=== PATIENT | female | born 1980 | race African-American/Black ===

== ENCOUNTER 2021-04-13 11:43 | Emergency (ER) | payer OTHER, SELFPAY ==
[2021-04-13 11:48] VITALS: BP 126/81; PULSE 75; RESP 18; TEMP 36.9; O2SAT 99; BMI 38.1
--- NOTE | 2021-04-13 13:02 | ED.MEDCLEAR ---
HPI - Medical Clearance General Chief complaint: Body Fluid Exposure Stated complaint: needle stick - work related Time Seen by Provider: 04/13/21 13:02 Source: patient Mode of arrival: ambulatory Limitations: no limitations History of Present Illness HPI Narrative: 41-year-old female is here today sent by her employer. Patient was drawing labs on the patient and got stuck with the butterfly needle to her left ring finger. Patient reports that the patient was being drawn for HIV. She does not know patient's status. Patient works at [employer]. Here for exposure with body fluid care. Related Information Allergies Allergy/AdvReac Type Severity Reaction Status Date / Time sulfamethoxazole Allergy Intermediate Rash Verified 04/13/21 13:15 [From Bactrim] trimethoprim [From Bactrim] Allergy Intermediate Rash Verified 04/13/21 13:15 Review of Systems Review of Systems: Constitutional : No Weight loss, No Fever, No Chills, No Night Sweats, No Fatigue, No Malaise ENT/Mouth : No Hearing loss, No Ear Pain, No Nasal Congestion, No Sinus Pain, No Hoarseness, No sore throat, No Rhinorrhea, No Swallowing Difficulty Eyes: No Eye Pain, No Swelling, No Redness, No Foreign Body, No Discharge, No Vision Changes Cardiovascular : No Chest Pain, No SOB, No Dyspnea on Exertion, No Orthopnea, No Edema, No Palpitations Respiratory : No Cough, No Sputum, No Wheezing, No Smoke Exposure, No Dyspnea Gastrointestinal : No Nausea, No Vomiting, No Diarrhea, No Constipation, No abdominal Pain, No Hematochezia, No Melena Genitourinary : no irregular bleeding, No Dysuria, No Urinary Frequency, No Hematuria, No Urinary Incontinence, No Urgency, No Flank Pain, No Urinary Flow Changes, No Hesitancy Musculoskeletal : No joint pain, No Myalgias, No Joint Swelling Skin : No Skin Lesions, No rash Neuro : No Weakness, No Numbness, No Paresthesias, No Loss of Consciousness, No Dizziness, No Headache Yes all other systems are reviewed and are negative [facility] Social History Social History Alcohol intake: never Patient Tobacco Use Status: Never used Tobacco Use of substances other than those prescribed or required for medical reasons: No Advance Directives: No Physical Exam Vital Signs: Vital Signs: Last Vital Signs Temp 98.4 F 04/13/21 11:48 Pulse 75 04/13/21 11:48 Resp 18 04/13/21 11:48 BP 126/81 04/13/21 11:48 Pulse Ox 99 04/13/21 11:48 Body Mass Index 38.1 Const: General: healthy appearing, no acute distress and well developed Nutritional Appearance: well nourished Orientation/consciousness: patient oriented x3 HENMT: Head: Yes normal to inspection, Yes normocephalic and Yes atraumatic Neck: Neck: Yes normal visual inspection, Yes full ROM and Yes trachea midline Thyroid: Thyroid normal Resp: Auscultation: clear to auscultation bilaterally Cardio: Rate: regular rate Rhythm: regular rhythm GI: Inspection: Yes normal to inspection and No distended Palpation (GI): No hepatosplenomegaly present Auscultation: normal bowel sounds Skin: General skin exam: elasticity normal, turgor normal and dry skin Neuro: General: patient oriented x3 Psych: Appearance: grossly normal and well kempt Mental Status: mental status grossly normal Speech and movement: Normal speech and movement present Affect: normal affect Course Course Course Narrative: 40-year-old female was sent by her employer for post exposure care. Patient reports that she was drying patient and was stuck with a butterfly needle to her left 4th finger. Patient reports that she bled and clean her hand immediately. However she does report the patient was being drawn for HIV. Possible high-risk patient will order blood work and give patient post exposure it. She will follow-up with her PCP as well as with work connection. MDM - Medical Clearance Lab Data Result diagrams: 04/13/21 14:13 04/13/21 14:13 Labs: Lab Results 04/13/21 04/13/21 04/13/21 Range/Units 14:13 14:13 14:13 WBC 7.4 (4.8-10.8) X10*3/uL RBC 4.35 (4.20-5.50) X10*6/uL Hgb 12.1 (12.0-16.0) g/dl Hct 38.2 (37-47) % MCV 87.8 (80-98) fL MCH 27.8 (27.0-33.0) pg MCHC 31.7 (31.0-35.0) g/dl RDW 13.3 (11.0-16.0) % Plt Count 299 (160-400) X10*3/uL MPV 9.5 (9.4-12.3) fL Immature Gran % (Auto) 0.3 (0.0-0.4) % Neut % (Auto) 50.3 (45-73) % Lymph % (Auto) 40.6 H (20-40) % [place] % (Auto) 7.3 (2-11) % Eos % (Auto) 1.2 (0-4) % Baso % (Auto) 0.3 (0-2) % Lymph # (Auto) 3.0 (1.2-4.9) X10*3/uL [place] # (Auto) 0.5 (0.1-1.2) X10*3/uL Eos # (Auto) 0.1 (0.0-0.4) X10*3/uL Baso # (Auto) 0.0 (0.0-0.2) X10*3/uL Abs Immat Gran (auto) 0.02 (0.00-0.03) X10*3/uL Absolute Neuts (auto) 3.7 (2.0-8.3) X10*3/uL Absolute Nucleated RBC 0.000 (0.0-0.012) X10*3/uL Nucleated RBC % (auto) 0.0 (0.0-0.2) /100WBC Sodium 140 (135-145) mmol/L Potassium 4.0 (3.3-5.1) mmol/L Chloride 105 (96-108) mmol/L Carbon Dioxide 27 (22-29) mmol/L Anion Gap 12 (12-20) BUN 13 (9-16) mg/dL Creatinine 0.81 (0.5-1.4) mg/dL Estim Creat Clear Calc 119.8 Estimated GFR > 60 Random Glucose 85 (60-115) mg/dL Calcium 9.2 (8.4-10.2) mg/dL Total Bilirubin 0.2 (0.0-1.0) mg/dL Direct Bilirubin < 0.2 (0.0-0.5) mg/dL AST 16 (5-31) U/L ALT 16 (0-31) U/L Alkaline Phosphatase 50 (39-117) U/L Total Protein 7.2 (6.5-8.0) g/dL Albumin 4.4 (3.5-5.0) g/dL Amylase 66 (28-100) U/L Lipase 17 (8-78) U/L Urine Color YELLOW Urine Appearance CLEAR Urine pH 6.0 (5.0-8.0) Ur Specific [place] 1.020 (1.005-1.025) Urine Protein NEG (NEG-TRACE) MG/DL Urine Glucose (UA) NEG (NEG) MG/DL Urine Ketones NEG (NEG) MG/DL Urine Blood 1+ H (NEG) Urine Nitrite NEG (NEG) Ur Leukocyte Esterase 1+ H (NEG) Urine RBC 0-2 (0) /HPF Urine WBC 1-4 (0-4) /HPF Ur Squamous Epith Cells TRACE /LPF Uric Acid Crystals TRACE /LPF Urine Bacteria NONE /LPF Urine Test (NEGATIVE) 04/13/21 Range/Units 14:13 WBC (4.8-10.8) X10*3/uL RBC (4.20-5.50) X10*6/uL Hgb (12.0-16.0) g/dl Hct (37-47) % MCV (80-98) fL MCH (27.0-33.0) pg MCHC (31.0-35.0) g/dl RDW (11.0-16.0) % Plt Count (160-400) X10*3/uL MPV (9.4-12.3) fL Immature Gran % (Auto) (0.0-0.4) % Neut % (Auto) (45-73) % Lymph % (Auto) (20-40) % [place] % (Auto) (2-11) % Eos % (Auto) (0-4) % Baso % (Auto) (0-2) % Lymph # (Auto) (1.2-4.9) X10*3/uL [place] # (Auto) (0.1-1.2) X10*3/uL Eos # (Auto) (0.0-0.4) X10*3/uL Baso # (Auto) (0.0-0.2) X10*3/uL Abs Immat Gran (auto) (0.00-0.03) X10*3/uL Absolute Neuts (auto) (2.0-8.3) X10*3/uL Absolute Nucleated RBC (0.0-0.012) X10*3/uL Nucleated RBC % (auto) (0.0-0.2) /100WBC Sodium (135-145) mmol/L Potassium (3.3-5.1) mmol/L Chloride (96-108) mmol/L Carbon Dioxide (22-29) mmol/L Anion Gap (12-20) BUN (9-16) mg/dL Creatinine (0.5-1.4) mg/dL Estim Creat Clear Calc Estimated GFR Random Glucose (60-115) mg/dL Calcium (8.4-10.2) mg/dL Total Bilirubin (0.0-1.0) mg/dL Direct Bilirubin (0.0-0.5) mg/dL AST (5-31) U/L ALT (0-31) U/L Alkaline Phosphatase (39-117) U/L Total Protein (6.5-8.0) g/dL Albumin (3.5-5.0) g/dL Amylase (28-100) U/L Lipase (8-78) U/L Urine Color Urine Appearance Urine pH (5.0-8.0) Ur Specific [place] (1.005-1.025) Urine Protein (NEG-TRACE) MG/DL Urine Glucose (UA) (NEG) MG/DL Urine Ketones (NEG) MG/DL Urine Blood (NEG) Urine Nitrite (NEG) Ur Leukocyte Esterase (NEG) Urine RBC (0) /HPF Urine WBC (0-4) /HPF Ur Squamous Epith Cells /LPF Uric Acid Crystals /LPF Urine Bacteria /LPF Urine Test NEGATIVE (NEGATIVE) Discharge Plan Discharge Clinical Impression: Employee exposure to body fluids Patient Disposition: Home, Self-Care Instructions: Postexposure Prophylaxis (ED) Additional Instructions: You were seen here today after needlestick. There is a possibility that you got exposed to other person's body fluid. Please follow up with work connection and make sure you take post exposure medication as ordered. Work connections number is please call him tomorrow to make follow-up appointment. You will need more medications if the patient is positive for HIV, hepatitis C Stand Alone Forms: Work/School Release Interventions: ED Discharge Assessment Last Done: 10/14/21 16:22 Discharge Date/Time: 04/13/21 16:24
[2021-04-13] MEDS: Post Exposure Medication Kit 1 KIT PO (14:05)
--- NOTE | 2021-04-13 14:12 | PC.NURSE ---
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
[2021-04-13 14:18] LABS: MANUAL DIFF FLAG NO
[2021-04-13 14:21] LABS: Basophils Percent Auto 0.3 % (0-2); Eosinophils Absolute Auto 0.1 X10*3/uL (0.0-0.4); Eosinophils Percent Auto 1.2 % (0-4); Hematocrit 38.2 % (37-47); Hemoglobin 12.1 g/dl (12.0-16.0); Imm Gran Abs Auto 0.02 X10*3/uL (0.00-0.03); Imm Gran Pct Auto 0.3 % (0.0-0.4); Lymphocytes Percent Auto 40.6 % (20-40); Mean Corpuscular HGB Conc 31.7 g/dl (31.0-35.0); Mean Corpuscular Hemoglobin 27.8 pg (27.0-33.0); Mean Corpuscular Volume 87.8 fL (80-98); Mean Platelet Volume 9.5 fL (9.4-12.3); Monocytes Absolute Auto 0.5 X10*3/uL (0.1-1.2); Monocytes Percent Auto 7.3 % (2-11); Neutrophils Absolute Auto 3.7 X10*3/uL (2.0-8.3); Neutrophils Percent Auto 50.3 % (45-73); Platelet Count 299 X10*3/uL (160-400); Red Blood Count 4.35 X10*6/uL (4.20-5.50); Red Cell Distribution Width 13.3 % (11.0-16.0); White Blood Count 7.4 X10*3/uL (4.8-10.8)
[2021-04-13 14:22] LABS: Appearance Urine CLEAR; Color Urine YELLOW; Glucose Urine UA NEG (NEG); Leukocyte Esterase Urine 1+ (NEG); Nitrite Urine NEG (NEG); UACC Culture Trigger YES; Urine Blood 1+ (NEG); Urine Ketones NEG (NEG); Urine Protein NEG (NEG-TRACE)
[2021-04-13 14:23] LABS: UPreg QC Valid YES; Urine Pregnancy NEGATIVE (NEGATIVE)
[2021-04-13 14:40] LABS: Alanine Aminotransferase 16 U/L (0-31); Albumin Level 4.4 g/dL (3.5-5.0); Alkaline Phosphatase 50 U/L (39-117); Amylase 66 U/L (28-100); Aspartate Amino Transferase 16 U/L (5-31); Bilirubin Direct < 0.2 mg/dL (0.0-0.5); Bilirubin Total 0.2 mg/dL (0.0-1.0); Blood Urea Nitrogen 13 mg/dL (9-16); Calcium 9.2 mg/dL (8.4-10.2); Creatinine Clr Calc Pharmacy 119.8; Estimated Glomerular Filt Rate > 60; Glucose Random 85 mg/dL (60-115); Lipase 17 U/L (8-78); Total Protein 7.2 g/dL (6.5-8.0)
[2021-04-13 14:50] LABS: Anion Gap 12 (12-20); Carbon Dioxide 27 mmol/L (22-29); Chloride 105 mmol/L (96-108); Sodium 140 mmol/L (135-145)
[2021-04-13 14:59] LABS: RBC Urine 0-2 /HPF (0); Squamous Epithelial Cell Urine TRACE /LPF; Uric Acid Crystals Urine TRACE /LPF
[2021-04-14 07:47] LABS: HBS Num1 42.44 mIU/mL (0-7.99); HBsAGNum1 0.49 S/CO (0.00-0.99); HIV AB/AG Nonreactive (Nonreactive); HIV Num 1 0.06 S/CO (0.00-0.99); Hepatitis B Surface Antigen Negative (Negative); ~Hepatitis B Surface Antibody REACTIVE (Nonreactive)
[2021-04-14 08:12] LABS: HBc Num1 0.08 S/CO (0.00-0.79); Hepatitis B Core Antibody Nonreactive (Nonreactive); ~HepC Num1 0.21 S/CO (0.00-0.79); ~Hepatitis C Antibody Nonreactive (Nonreactive)
== END 2021-04-13 16:24 | disposition home or self-care (01) ==
PROVIDERS: Nurse Practitioner Family; Emergency Provider Emergency Medicine
DX: Z77.21 Contact with and (suspected) exposure to potentially hazardous body fluids (principal)
CPT/HCPCS: 36415; 80048; 80076; 81001; 81025; 82150; 83690; 85025; 86704; 86706; 86803; 87086; 87147; 87340; 87389; 99283; 99284

== ENCOUNTER 2024-03-26 11:41 | Emergency (ER) | payer OTHER, SELFPAY ==
[2024-03-26] VITALS (7 sets, daily range): BP systolic 110–142; BP diastolic 71–98; PULSE 62–81; RESP 16–20; TEMP 36.1–36.9; O2SAT 97–99; BMI 39.5
--- NOTE | ~2024-03-26 | XR_ITS ---
EXAMINATION: XR CHEST CLINICAL INFORMATION: Chest pain. COMPARISON: None available. TECHNIQUE: Frontal view of the chest was obtained. FINDINGS: The heart is normal in size. The lungs are clear. No pneumothorax or pleural effusion. No acute osseous abnormality. XR/XR chest 1V IMPRESSION: No acute cardiopulmonary disease. Electronically signed by: Alfonso Duke DO 03/26/2024 03:02 PM EDT
--- NOTE | 2024-03-26 11:50 | ECG_ITS ---
Test Reason : CHEST PAIN Blood Pressure : / mmHG Vent. Rate : 071 BPM Atrial Rate : 071 BPM P-R Int : 158 ms QRS Dur : 084 ms QT Int : 392 ms P-R-T Axes : 050 006 007 degrees QTc Int : 425 ms Normal sinus rhythm Nonspecific T wave abnormality Abnormal ECG No previous ECGs available Referred By: Hermilo Whaley Electronically Signed By:MARYJO POWERS
--- NOTE | 2024-03-26 11:53 | ED_ITS ---
HPI - General Adult General Chief complaint: Chest Pain Stated complaint: Chest pain Time Seen by Provider: 03/26/24 12:03 Source: patient and RN notes reviewed Mode of arrival: ambulatory Limitations: no limitations History of Present Illness ED Provider: Thu Webb PA-C HPI narrative: This is a [id number]-female, with a hx of anemia and PCOS, who presents to the ER with complaints of chest pain which started this AM. 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 She states that the pain is constant but developed a stabbing like pain intermittently. She reports no recent illness. No hx of similar symptoms in the past. Denies any fevers, chills, palpitations, abdominal pain, shortness of breath, nausea, vomiting or diarrhea. She reports that she has been under stress and has had inconsistent sleep. She is not on OCPs, no recent travel, surgeries, hospitalizations. No known cardiac hx. No calf tenderness. No other complaints or concerns at this time. MD complaint: Chest pain Onset (ago): day(s) Radiation: non-radiation Severity: moderate Quality: stabbing and aching Pain Consistency: intermittent Relieving factors: none Exacerbating factors: none Associated symptoms: chest pain Treatments prior to arrival: none Related Data Allergies Allergy/AdvReac Type Severity Reaction Status Date / Time sulfamethoxazole Allergy Intermediate Rash Verified 03/26/24 11:49 [From Bactrim] trimethoprim [From Bactrim] Allergy Intermediate Rash Verified 03/26/24 11:49 Review of Systems 2 Review of Systems: Yes all other systems are reviewed and are negative Constitutional: Constitutional: Reports as per [facility] Social History Social History Alcohol intake: never Patient Tobacco Use Status: Never used Tobacco Advance Directives: No Physical Exam ED Vital Signs: Vital Signs - 24 hr 03/26/24 11:46 03/26/24 12:00 03/26/24 12:54 Temperature 97.0 F 98.2 F Pulse Rate 74 62 62 Respiratory Rate 18 16 Blood Pressure 137/87 137/92 H 137/92 H Pulse Oximetry 98 98 Oxygen Delivery Method Room Air Room Air 03/26/24 12:54 03/26/24 12:55 03/26/24 15:14 Temperature 98.5 F Pulse Rate 72 81 68 Respiratory Rate 16 Blood Pressure 134/88 142/98 H 110/71 Pulse Oximetry 97 Oxygen Delivery Method Room Air 03/26/24 16:42 03/26/24 17:35 Temperature 98.1 F 98.1 F Pulse Rate 63 63 Respiratory Rate 20 20 Blood Pressure 121/77 121/77 Pulse Oximetry 99 99 Oxygen Delivery Method Room Air Room Air BMI result Body Mass Index 39.5 Const General: cooperative, comfortable and no acute distress Orientation/consciousness: patient oriented x3 Limitations: no limitations HENMT Head: Yes normal to inspection, Yes normocephalic and Yes atraumatic Ears: hearing grossly normal bilaterally General nose exam: Normal external nose present Face and sinus: Yes normal facial exam Mouth: Normal oral and palatal mucosa present, oropharynx normal and moist mucous membranes Throat: Yes posterior oropharynx normal Eyes General: appearance normal, both eyes and all related structures Eyelids: Yes eyelids normal Conjunctivae: conjunctivae normal Sclerae: sclerae normal Pupils: Equal, round and reactive pupils present EOM: EOMs intact bilaterally Neck Neck: Yes normal visual inspection, Yes full ROM and Yes no lymphadenopathy Lymphatic: no lymphadenopathy noted Chest Chest palpation & inspection: normal inspection of the chest Resp Effort & Inspection: normal respiratory effort and able to speak in complete sentences Auscultation: clear to auscultation bilaterally, no crackles, no rales, no rhonchi and no wheezes Cardio Other: mild left sided chest wall tenderness to palpation Rate: regular rate Rhythm: regular rhythm Heart sounds: S1 normal heart sound present and S2 normal heart sound present GI Inspection: Yes normal to inspection Skin General skin exam: no rashes or lesions noted Trauma: no lacerations or abrasions Wounds: no wounds Neuro General: patient oriented x3 and moves all extremities Cranial nerves: Yes Equal, round and reactive pupils present Extrem Other: No lower extremity edema, no calf tenderness General: Yes normal to inspection Right upper extremity: normal to inspection Left upper extremity: normal to inspection Right lower extremity: normal to inspection Left lower extremity: normal to inspection Course Course Course Narrative: RME: DOne by Marques Pitts. 43-year-old female presents to ED for midsternal chest pain radiating to the left. Patient states chest pain only when she stands up and feel dizzy. Patient states history of anemia blood transfusion in the past. Patient denies any leg swelling, calf pain, coughing up blood, fever or chills. Negative for any lower extremity swelling, pitting edema, or calf tenderness. Lungs are clear. EKG labs orthostatics ordered. Reevaluation(s) Reevaluation #1: Upon workup today, labs reveal no leukocytosis, stable H&H and no electrolyte derangements. EKG nonischemic. ddimer negative. Troponin x2 are negative. Discussed workup with my attending and given overall negative workup, low heart score, patient can be safely d/c home with strict return precautions. Pt understands and agrees with plan. Stable for d/c. Medications Administered Discontinued Medications Generic Name Dose Route Start Last Admin Trade Name Freq PRN Reason Stop Dose Admin Al Hydroxide/Mg Hydroxide 30 ml 03/26/24 12:24 03/26/24 12:37 Magnesium Hydrox/Alum Hydrox 30 Ml Oral.Susp PO 03/26/24 12:25 30 ml ONCE ONE Administration Belladonna Alkaloids/Phenobarbital 10 ml 03/26/24 12:24 03/26/24 12:38 Phenobarb/Hyoscy/Atropine/Scop 10 Ml Elixir PO 03/26/24 12:25 10 ml ONCE ONE Administration Lidocaine HCl 15 ml 03/26/24 12:24 03/26/24 12:37 Lidocaine Hcl Viscous 2 % 15 Ml Solution MUCOUS MEM 03/26/24 12:25 15 ml ONCE ONE Administration Medical Decision Making Medical Decision Making [facility] Narrative: This is a [id number]-female who presents to the ER with complaints of chest pain which started this morning. On arrival, patient is alert and oriented x4. She is speaking in full sentences and during my assessment would have intermittent sharp chest pain. Vital signs stable. She has no known cardiac problems. Exam revealing mild ttp to left anterior chest wall, lungs CTAB, no calf tenderness to palpation, no pedal edema. DDX including ACS, costochondritis, PE, pneumothorax, gastritis. Plan: Labs, EKG, CXR Differential Diagnosis Differential Diagnoses: The differential diagnosis associated with the presentation includes see above Admission/Observation Consideration of admission/observation: Escalation of care including admission/observation considered Escalation of care including admission/observation considered however given workup today not warranted at this time. Lab Data [facility] Lab Attestation statement: I reviewed the patient's lab results. No leukocytosis, H&H WNL, trop x 2 negative, dimer negative 03/26/24 12:19 03/26/24 12:19 Labs: Lab Results 03/26/24 03/26/24 03/26/24 Range/Units 12:19 12:19 12:19 WBC 7.7 (4.8-10.8) X10*3/uL RBC 4.41 (4.20-5.50) X10*6/uL Hgb 12.4 (12.0-16.0) g/dl Hct 38.2 (37.0-47.0) % MCV 86.6 (80.0-98.0) fL MCH 28.1 (27.0-33.0) pg MCHC 32.5 (31.0-35.0) g/dl RDW 14.0 (11.0-16.0) % Plt Count 335 (160-400) X10*3/uL MPV 9.4 (9.4-12.3) fL Immature Gran % (Auto) 0.3 (0.0-0.4) % Neut % (Auto) 49.2 (45-73) % Lymph % (Auto) 40.4 H (20-40) % Bradford % (Auto) 8.4 (2-11) % Eos % (Auto) 1.3 (0-4) % Baso % (Auto) 0.4 (0-2) % Lymph # (Auto) 3.1 (1.2-4.9) X10*3/uL Bradford # (Auto) 0.7 (0.1-1.2) X10*3/uL Eos # (Auto) 0.1 (0.0-0.4) X10*3/uL Baso # (Auto) 0.0 (0.0-0.2) X10*3/uL Abs Immat Gran (auto) 0.02 (0.00-0.03) X10*3/uL Absolute Neuts (auto) 3.8 (2.0-8.3) x10*3/uL Absolute Nucleated RBC 0.000 (0.0-0.012) X10*3/uL Nucleated RBC % (auto) 0.0 (0.0-0.2) /100WBC PT (10.9-12.4) SEC INR (0.9-1.1) APTT (26.0-36.8) SEC D-Dimer High Sensitivty NG/ML Sodium Cancelled 142 Potassium Cancelled 3.8 Chloride Cancelled Carbon Dioxide Anion Gap BUN Creatinine Estim Creat Clear Calc Estimated GFR Random Glucose Calcium Total Bilirubin AST ALT Alkaline Phosphatase Troponin I High Sens (<3.5-17.0) ng/L B-Natriuretic Peptide (<100) pg/mL Total Protein Albumin Lipase (8-78) U/L Beta HCG, Quant mIU/mL Influenza Type A (PCR) (Negative) Influenza Type B (PCR) (Negative) RSV RNA Qual (PCR) (Negative) SARS-CoV-2 RNA (RT-PCR) (Negative) 03/26/24 03/26/24 03/26/24 Range/Units 12:19 12:19 12:19 WBC (4.8-10.8) X10*3/uL RBC (4.20-5.50) X10*6/uL Hgb (12.0-16.0) g/dl Hct (37.0-47.0) % MCV (80.0-98.0) fL MCH (27.0-33.0) pg MCHC (31.0-35.0) g/dl RDW (11.0-16.0) % Plt Count (160-400) X10*3/uL MPV (9.4-12.3) fL Immature Gran % (Auto) (0.0-0.4) % Neut % (Auto) (45-73) % Lymph % (Auto) (20-40) % Bradford % (Auto) (2-11) % Eos % (Auto) (0-4) % Baso % (Auto) (0-2) % Lymph # (Auto) (1.2-4.9) X10*3/uL Bradford # (Auto) (0.1-1.2) X10*3/uL Eos # (Auto) (0.0-0.4) X10*3/uL Baso # (Auto) (0.0-0.2) X10*3/uL Abs Immat Gran (auto) (0.00-0.03) X10*3/uL Absolute Neuts (auto) (2.0-8.3) x10*3/uL Absolute Nucleated RBC (0.0-0.012) X10*3/uL Nucleated RBC % (auto) (0.0-0.2) /100WBC PT (10.9-12.4) SEC INR (0.9-1.1) APTT (26.0-36.8) SEC D-Dimer High Sensitivty NG/ML Sodium Potassium Chloride 104 Carbon Dioxide Cancelled 29 Anion Gap Cancelled 13 BUN Cancelled Creatinine Estim Creat Clear Calc Estimated GFR Random Glucose Calcium Total Bilirubin AST ALT Alkaline Phosphatase Troponin I High Sens (<3.5-17.0) ng/L B-Natriuretic Peptide (<100) pg/mL Total Protein Albumin Lipase (8-78) U/L Beta HCG, Quant mIU/mL Influenza Type A (PCR) (Negative) Influenza Type B (PCR) (Negative) RSV RNA Qual (PCR) (Negative) SARS-CoV-2 RNA (RT-PCR) (Negative) 03/26/24 03/26/24 03/26/24 Range/Units 12:19 12:19 12:19 WBC (4.8-10.8) X10*3/uL RBC (4.20-5.50) X10*6/uL Hgb (12.0-16.0) g/dl Hct (37.0-47.0) % MCV (80.0-98.0) fL MCH (27.0-33.0) pg MCHC (31.0-35.0) g/dl RDW (11.0-16.0) % Plt Count (160-400) X10*3/uL MPV (9.4-12.3) fL Immature Gran % (Auto) (0.0-0.4) % Neut % (Auto) (45-73) % Lymph % (Auto) (20-40) % Bradford % (Auto) (2-11) % Eos % (Auto) (0-4) % Baso % (Auto) (0-2) % Lymph # (Auto) (1.2-4.9) X10*3/uL Bradford # (Auto) (0.1-1.2) X10*3/uL Eos # (Auto) (0.0-0.4) X10*3/uL Baso # (Auto) (0.0-0.2) X10*3/uL Abs Immat Gran (auto) (0.00-0.03) X10*3/uL Absolute Neuts (auto) (2.0-8.3) x10*3/uL Absolute Nucleated RBC (0.0-0.012) X10*3/uL Nucleated RBC % (auto) (0.0-0.2) /100WBC PT (10.9-12.4) SEC INR (0.9-1.1) APTT (26.0-36.8) SEC D-Dimer High Sensitivty NG/ML Sodium Potassium Chloride Carbon Dioxide Anion Gap BUN 9 Creatinine Cancelled 1.08 Estim Creat Clear Calc Cancelled 88.7 Estimated GFR Cancelled Random Glucose Calcium Total Bilirubin AST ALT Alkaline Phosphatase Troponin I High Sens (<3.5-17.0) ng/L B-Natriuretic Peptide (<100) pg/mL Total Protein Albumin Lipase (8-78) U/L Beta HCG, Quant mIU/mL Influenza Type A (PCR) (Negative) Influenza Type B (PCR) (Negative) RSV RNA Qual (PCR) (Negative) SARS-CoV-2 RNA (RT-PCR) (Negative) 03/26/24 03/26/24 03/26/24 Range/Units 12:19 12:19 12:19 WBC (4.8-10.8) X10*3/uL RBC (4.20-5.50) X10*6/uL Hgb (12.0-16.0) g/dl Hct (37.0-47.0) % MCV (80.0-98.0) fL MCH (27.0-33.0) pg MCHC (31.0-35.0) g/dl RDW (11.0-16.0) % Plt Count (160-400) X10*3/uL MPV (9.4-12.3) fL Immature Gran % (Auto) (0.0-0.4) % Neut % (Auto) (45-73) % Lymph % (Auto) (20-40) % Bradford % (Auto) (2-11) % Eos % (Auto) (0-4) % Baso % (Auto) (0-2) % Lymph # (Auto) (1.2-4.9) X10*3/uL Bradford # (Auto) (0.1-1.2) X10*3/uL Eos # (Auto) (0.0-0.4) X10*3/uL Baso # (Auto) (0.0-0.2) X10*3/uL Abs Immat Gran (auto) (0.00-0.03) X10*3/uL Absolute Neuts (auto) (2.0-8.3) x10*3/uL Absolute Nucleated RBC (0.0-0.012) X10*3/uL Nucleated RBC % (auto) (0.0-0.2) /100WBC PT (10.9-12.4) SEC INR (0.9-1.1) APTT (26.0-36.8) SEC D-Dimer High Sensitivty NG/ML Sodium Potassium Chloride Carbon Dioxide Anion Gap BUN Creatinine Estim Creat Clear Calc Estimated GFR 55 Random Glucose Cancelled 88 Calcium Cancelled 9.7 Total Bilirubin Cancelled AST ALT Alkaline Phosphatase Troponin I High Sens (<3.5-17.0) ng/L B-Natriuretic Peptide (<100) pg/mL Total Protein Albumin Lipase (8-78) U/L Beta HCG, Quant mIU/mL Influenza Type A (PCR) (Negative) Influenza Type B (PCR) (Negative) RSV RNA Qual (PCR) (Negative) SARS-CoV-2 RNA (RT-PCR) (Negative) 03/26/24 03/26/24 03/26/24 Range/Units 12:19 12:19 12:19 WBC (4.8-10.8) X10*3/uL RBC (4.20-5.50) X10*6/uL Hgb (12.0-16.0) g/dl Hct (37.0-47.0) % MCV (80.0-98.0) fL MCH (27.0-33.0) pg MCHC (31.0-35.0) g/dl RDW (11.0-16.0) % Plt Count (160-400) X10*3/uL MPV (9.4-12.3) fL Immature Gran % (Auto) (0.0-0.4) % Neut % (Auto) (45-73) % Lymph % (Auto) (20-40) % Bradford % (Auto) (2-11) % Eos % (Auto) (0-4) % Baso % (Auto) (0-2) % Lymph # (Auto) (1.2-4.9) X10*3/uL Bradford # (Auto) (0.1-1.2) X10*3/uL Eos # (Auto) (0.0-0.4) X10*3/uL Baso # (Auto) (0.0-0.2) X10*3/uL Abs Immat Gran (auto) (0.00-0.03) X10*3/uL Absolute Neuts (auto) (2.0-8.3) x10*3/uL Absolute Nucleated RBC (0.0-0.012) X10*3/uL Nucleated RBC % (auto) (0.0-0.2) /100WBC PT (10.9-12.4) SEC INR (0.9-1.1) APTT (26.0-36.8) SEC D-Dimer High Sensitivty NG/ML Sodium Potassium Chloride Carbon Dioxide Anion Gap BUN Creatinine Estim Creat Clear Calc Estimated GFR Random Glucose Calcium Total Bilirubin 0.3 AST Cancelled 17 ALT Cancelled 17 Alkaline Phosphatase Cancelled Troponin I High Sens (<3.5-17.0) ng/L B-Natriuretic Peptide (<100) pg/mL Total Protein Albumin Lipase (8-78) U/L Beta HCG, Quant mIU/mL Influenza Type A (PCR) (Negative) Influenza Type B (PCR) (Negative) RSV RNA Qual (PCR) (Negative) SARS-CoV-2 RNA (RT-PCR) (Negative) 03/26/24 03/26/24 03/26/24 Range/Units 12:19 12:19 12:19 WBC (4.8-10.8) X10*3/uL RBC (4.20-5.50) X10*6/uL Hgb (12.0-16.0) g/dl Hct (37.0-47.0) % MCV (80.0-98.0) fL MCH (27.0-33.0) pg MCHC (31.0-35.0) g/dl RDW (11.0-16.0) % Plt Count (160-400) X10*3/uL MPV (9.4-12.3) fL Immature Gran % (Auto) (0.0-0.4) % Neut % (Auto) (45-73) % Lymph % (Auto) (20-40) % Bradford % (Auto) (2-11) % Eos % (Auto) (0-4) % Baso % (Auto) (0-2) % Lymph # (Auto) (1.2-4.9) X10*3/uL Bradford # (Auto) (0.1-1.2) X10*3/uL Eos # (Auto) (0.0-0.4) X10*3/uL Baso # (Auto) (0.0-0.2) X10*3/uL Abs Immat Gran (auto) (0.00-0.03) X10*3/uL Absolute Neuts (auto) (2.0-8.3) x10*3/uL Absolute Nucleated RBC (0.0-0.012) X10*3/uL Nucleated RBC % (auto) (0.0-0.2) /100WBC PT (10.9-12.4) SEC INR (0.9-1.1) APTT (26.0-36.8) SEC D-Dimer High Sensitivty NG/ML Sodium Potassium Chloride Carbon Dioxide Anion Gap BUN Creatinine Estim Creat Clear Calc Estimated GFR Random Glucose Calcium Total Bilirubin AST ALT Alkaline Phosphatase 60 Troponin I High Sens < 2.7 (<3.5-17.0) ng/L B-Natriuretic Peptide < 10 (<100) pg/mL Total Protein Cancelled 7.4 Albumin Cancelled 4.2 Lipase 24 (8-78) U/L Beta HCG, Quant < 2 mIU/mL Influenza Type A (PCR) NEGATIVE (Negative) Influenza Type B (PCR) NEGATIVE (Negative) RSV RNA Qual (PCR) NEGATIVE (Negative) SARS-CoV-2 RNA (RT-PCR) NEGATIVE (Negative) 03/26/24 03/26/24 Range/Units 12:25 15:37 WBC (4.8-10.8) X10*3/uL RBC (4.20-5.50) X10*6/uL Hgb (12.0-16.0) g/dl Hct (37.0-47.0) % MCV (80.0-98.0) fL MCH (27.0-33.0) pg MCHC (31.0-35.0) g/dl RDW (11.0-16.0) % Plt Count (160-400) X10*3/uL MPV (9.4-12.3) fL Immature Gran % (Auto) (0.0-0.4) % Neut % (Auto) (45-73) % Lymph % (Auto) (20-40) % Bradford % (Auto) (2-11) % Eos % (Auto) (0-4) % Baso % (Auto) (0-2) % Lymph # (Auto) (1.2-4.9) X10*3/uL Bradford # (Auto) (0.1-1.2) X10*3/uL Eos # (Auto) (0.0-0.4) X10*3/uL Baso # (Auto) (0.0-0.2) X10*3/uL Abs Immat Gran (auto) (0.00-0.03) X10*3/uL Absolute Neuts (auto) (2.0-8.3) x10*3/uL Absolute Nucleated RBC (0.0-0.012) X10*3/uL Nucleated RBC % (auto) (0.0-0.2) /100WBC PT 14.5 H (10.9-12.4) SEC INR 1.2 H (0.9-1.1) APTT 40.4 H (26.0-36.8) SEC D-Dimer High Sensitivty < 150 NG/ML Sodium Potassium Chloride Carbon Dioxide Anion Gap BUN Creatinine Estim Creat Clear Calc Estimated GFR Random Glucose Calcium Total Bilirubin AST ALT Alkaline Phosphatase Troponin I High Sens < 2.7 (<3.5-17.0) ng/L B-Natriuretic Peptide (<100) pg/mL Total Protein Albumin Lipase (8-78) U/L Beta HCG, Quant mIU/mL Influenza Type A (PCR) (Negative) Influenza Type B (PCR) (Negative) RSV RNA Qual (PCR) (Negative) SARS-CoV-2 RNA (RT-PCR) (Negative) Independent Interpretation I performed an independent interpretation of an: EKG Interpretation: NSR at a ventricular rate of 71bpm, no STEMI. No previous ECGs available Radiology Impression Discussion of test interpretation with radiology: I have reviewed the radiologist's reading. Radiologist Impression: XR/XR chest 1V IMPRESSION: No acute cardiopulmonary disease. Electronically signed by: Alfonso Duke DO 03/26/2024 03:02 PM EDT RP Dictated By: Alfonso Duke Jr, DO Scores Heart Score History: -1- moderately suspicious ECG: -0- normal Age: -1- >45 - <65 Risk factory: -0- no risk factors known Troponin: -0- < or = normal limit Score: 2 Risk: 1.7% Discharge Plan Discharge Clinical Impression: Chest pain Patient Disposition: Home, Self-Care Instructions: Chest Pain (ED) Additional Instructions: You were seen in the emergency department due to chest pain. Your workup today was reassuring. Your chest x-ray was normal. Blood work was normal. Your EKG was normal. It is unclear what is causing your chest pain however your overall workup today was reassuring Please follow-up with your primary care physician. Call tomorrow to make an appointment. Rest, drink plenty of fluids get plenty of rest. Take ibuprofen and or Tylenol as needed for pain. If any new or worsening symptoms occur including but not limited to worsening chest pain, shortness of breath, please return for re-evaluation Referrals: Carlos Horne PA-C [Physician [employer]ot Machine Mechanic] - Stand Alone Forms: Work/School Release Interventions: ED Discharge Assessment Last Done: 03/26/24 17:35 Discharge Date/Time: 03/26/24 17:36 Print Language: Sami
[2024-03-26 12:30] LABS: MANUAL DIFF FLAG NO
[2024-03-26 12:32] LABS: Basophils Percent Auto 0.4 % (0-2); Eosinophils Absolute Auto 0.1 X10*3/uL (0.0-0.4); Eosinophils Percent Auto 1.3 % (0-4); Hematocrit 38.2 % (37.0-47.0); Hemoglobin 12.4 g/dl (12.0-16.0); Imm Gran Abs Auto 0.02 X10*3/uL (0.00-0.03); Imm Gran Pct Auto 0.3 % (0.0-0.4); Lymphocytes Absolute Auto 3.1 X10*3/uL (1.2-4.9); Lymphocytes Percent Auto 40.4 % (20-40); Mean Corpuscular HGB Conc 32.5 g/dl (31.0-35.0); Mean Corpuscular Hemoglobin 28.1 pg (27.0-33.0); Mean Corpuscular Volume 86.6 fL (80.0-98.0); Mean Platelet Volume 9.4 fL (9.4-12.3); Monocytes Absolute Auto 0.7 X10*3/uL (0.1-1.2); Monocytes Percent Auto 8.4 % (2-11); Neutrophils Absolute Auto 3.8 x10*3/uL (2.0-8.3); Neutrophils Percent Auto 49.2 % (45-73); Platelet Count 335 X10*3/uL (160-400); Red Blood Count 4.41 X10*6/uL (4.20-5.50); White Blood Count 7.7 X10*3/uL (4.8-10.8)
[2024-03-26] MEDS: Magnesium Hydrox/Alum Hydrox 30 ML ORAL.SUSP PO (12:37)
[2024-03-26] MEDS: Lidocaine HCl Viscous 2 % 15 ML SOLUTION MUCOUS MEM (12:37)
[2024-03-26 12:38] LABS: INTERNATIONAL NORM RATIO 1.2 (0.9-1.1); Prothrombin Time 14.5 SEC (10.9-12.4)
[2024-03-26] MEDS: PHENobarb/Hyoscy/Atropine/Scop 10 ML ELIXIR PO (12:38)
[2024-03-26 12:40] LABS: D Dimer High Sensitivity < 150 NG/ML; Partial Thromboplastin Time 40.4 SEC (26.0-36.8)
[2024-03-26 12:54] LABS: B Type Natriuretic Peptide < 10 pg/mL (<100)
[2024-03-26 13:02] LABS: HCG Quantitative < 2 mIU/mL
[2024-03-26 13:15] LABS: Influenza A PCR NEGATIVE (Negative); Influenza B PCR NEGATIVE (Negative); Resp Syncy Virus RNA Qual PCR NEGATIVE (Negative); SARS COV2 PCR INHOUSE NEGATIVE (Negative)
[2024-03-26 13:20] LABS: Troponin-I High Sensitivity < 2.7 ng/L (<3.5-17.0)
[2024-03-26 13:24] LABS: Alanine Aminotransferase 17 U/L (0-31); Albumin Level 4.2 g/dL (3.5-5.0); Alkaline Phosphatase 60 U/L (39-117); Anion Gap 13 (12-20); Aspartate Amino Transferase 17 U/L (5-31); Bilirubin Total 0.3 mg/dL (0.0-1.0); Blood Urea Nitrogen 9 mg/dL (9-16); Calcium 9.7 mg/dL (8.4-10.2); Carbon Dioxide 29 mmol/L (22-29); Chloride 104 mmol/L (96-108); Creatinine Clr Calc Pharmacy 88.7; Estimated Glomerular Filt Rate 55; Glucose Random 88 mg/dL (60-115); Potassium 3.8 mmol/L (3.3-5.1); Sodium 142 mmol/L (135-145); Total Protein 7.4 g/dL (6.5-8.0)
[2024-03-26 13:57] LABS: Lipase 24 U/L (8-78)
[2024-03-26 16:12] LABS: Troponin-I High Sensitivity < 2.7 ng/L (<3.5-17.0)
== END 2024-03-26 17:36 | disposition home or self-care (01) ==
PROVIDERS: Physician Assistant; Physician Assistant Medical; Emergency Provider Student in an Organized Health Care Education/Training Program
DX: R07.89 Other chest pain (principal); R42 Dizziness and giddiness; R10.2 Pelvic and perineal pain; R06.02 Shortness of breath; Z79.899 Other long term (current) drug therapy; Z03.818 Encounter for observation for suspected exposure to other biological agents ruled out
CPT/HCPCS: 0241U; 36415; 71045; 80053; 83690; 83880; 84484; 84702; 85025; 85379; 85610; 85730; 93005; 99284; 99285